=== PATIENT | male | born 1955 | race African-American/Black ===

== ENCOUNTER 2016-07-22 13:21 | Emergency (ER) | payer MEDICARE, OTHER ==
--- NOTE | ~2016-07-22 | EKG ---
PATIENT: BI ZIMMERMAN UNIT #: [id number] Ventricular Rate: 101 BPM Atrial Rate: 101 BPM P-R Interval: 120 ms QRS Duration: 76 ms Q-T Interval: 346 ms QTC Calculation(Bezet): 448 ms P [place]: 78 degrees Calculated R [place]: 74 degrees Calculated T [place]: 81 degrees Diagnosis Line: Sinus tachycardia Diagnosis Line: Otherwise normal ECG Diagnosis Line: When compared with ECG of 14-FEB-2016 10:12, Diagnosis Line: Nonspecific T wave abnormality no longer evident Diagnosis Line: in Anterior leads Diagnosis Line: Confirmed by JAHAIRA HORTON MD ([id number]) on 07/22/2016 Diagnosis Line: 4:17:14 PM INTERPRETING MD: SOL SWENSON
--- NOTE | ~2016-07-22 | CR72 ---
[facility] A Service of [facility] RADIOLOGY TEXT RESULTS PATIENT: BI ZIMMERMAN LOCATION: [facility] : 57 UNIT #: [id number] AGE: [address]: Javed Chambers MD SEX: M ORDER DR: [id number] [facility]. [place], [place] [address] [id number] MR#: [id number] Acc #: [id number] NAME: BI ZIMMERMAN : 1955 SEX: M STUDY DATE/TIME: 07/22/2016 UNIT: [facility] ROOM: STUDY DESCRIPTION: CR Chest Single View Portable Attending Physician: Javed Chambers M.D. Ordering Physician: Ed Ben Monique M.D. Primary Care Physician: No Primary Care Physician MEDICAL IMAGING REPORT This report is preliminary unless electronic signature is present EXAM Portable chest, 07/22/2016, 1324 hours. HISTORY 61-year-old man with history of emphysema complaining of cough, shortness of air, and chest pain for 3-4 days. COMPARISON STUDIES 02/17/2016 FINDINGS 2 upright views demonstrate normal cardiac, mediastinal, and hilar contours. The lungs are hyperinflated with underlying calcified granulomatous changes. There are no acute pulmonary densities or pleural effusions. IMPRESSION Stable hyperinflation with benign calcified granulomatous changes. No acute pulmonary or pleural findings. No appreciable change from 02/17/2016. Dictated by... Libby Mancini M.D. THIS IS AN ELECTRONICALLY VERIFIED REPORT Libby Mancini M.D. at 07/22/2016 6:59 PM Cassie TD: 07/22/2016 17:28 JOB #: [id number] MEDICAL IMAGING REPORT [facility] A Service of [facility] RADIOLOGY TEXT RESULTS PATIENT: BI ZIMMERMAN LOCATION: [place] : 57 UNIT #: [id number] AGE: [address]: Javed Chambers MD SEX: M ORDER DR: COPY
[~2016-07-22 13:21] MED LIST: ACETAMINOPHEN PO; ALBUTEROL MININEB NEB; ALBUTEROL17 GM INH; ALBUTEROL20 ml INH; ASPIRIN ENTERI325 M1 PO; ATORVASTATIN CA10 MG PO; AZITHROMYCIN250 MG PO; B COMPLEX1 CA1 PO; COMBIVENT MININEB INH; COZAAR PO; COZAAR25 MG PO; DOCUSATE SODIUM1 TAB PO; FLOMAX0.4 M1 PO; FLUTICASONE PROP1 GM; HAIR, SKIN & N1 EAC1 PO; HYDROCHLOROTHIA25 MG PO; HYDROCODON-ACE1 EAC7 PO; KOMBIGLYZE XR1 EAC2 PO; LEVAQUIN PO; LIPITOR40 MG PO; LOSARTAN-HCTZ1 EAC1 PO; MEGA MULTIVITA1 EACH PO; MUCINEX D ER T1 EAC1 PO; NASONEB NASAL1 EACH MC; POTASSIUM99 M1 PO; POTASSIUM99 M3 PO; PREDNISONE PO; PREDNISONE10 MG PO; PROAIR HFA8.5 GM INH; PULMICORT0.25 MG/2 INH; SENNA S TABLET1 TAB PO; STOOL SOFTENER50 MG PO; SYMBICORT INH; SYMBICORT80 INH; TYLENOL325 M1 PO; ZITHROMAX PO
[2016-07-22] MEDS ORDERED: HYDROCHLOROTHIA25 MG PO (13:25)
[2016-07-22] MEDS ORDERED: SYMBICORT INH (13:25)
[2016-07-22] MEDS ORDERED: NOVOLIN N100 UNIT/1 SUBQ (13:27)
[2016-07-22] MEDS ORDERED: MEGA MULTIVITA1 EACH PO (13:27)
[2016-07-22] MEDS ORDERED: NAPROXEN PO (13:28)
[2016-07-22] MEDS ORDERED: PROTONIX PO (13:29)
[2016-07-22 13:31] LABS: POC - TROPONIN <0.05 ng/mL (<=0.05)
[2016-07-22] MEDS ORDERED: SAXAGLIPTIN HCL PO (13:31)
[2016-07-22] MEDS ORDERED: ASPIRIN EC81 M1 PO (13:32)
[2016-07-22 13:45] LABS: BASOPHIL# 0.1 X10e3 (0-0.3); BASOPHIL% 0.9 % (0-2.5); EOSINOPHIL% 0.2 % (0.0-7.0); HEMATOCRIT 49.8 % (38.0-50.0); HEMOGLOBIN 16.8 gm/dL (13.0-16.0); LYMPHOCYTE# 1.2 X10e3 (1.0-3.5); LYMPHOCYTE% 10.2 % (17.0-45.0); MEAN CELL VOLUME 94.5 FL (83-96); MEAN CORPUSCULAR HEMOGLOBIN 31.9 PG (28-34); MEAN CORPUSCULAR HGB CONC 33.8 g/dL (30-36); MEAN PLATELET VOLUME 8.9 FL (6.5-11.5); MONOCYTE# 1.7 X10e3 (0-1.0); MONOCYTE% 14.1 % (3.0-12.0); NEUTROPHIL# 9.1 X10e3 (1.5-7.1); NEUTROPHIL% 74.6 % (40-75); PLATELET COUNT 221 X10e3 (140-420); RED BLOOD COUNT 5.27 X10e (3.90-5.60); RED CELL DISTRIBUTION WIDTH 13.7 % (11.0-15.5); WHITE BLOOD COUNT 12.2 X10e3 (4.0-10.5)
[2016-07-22 13:52] LABS: DIFF IND NO
[2016-07-22 14:40] LABS: ALBUMIN SERUM 3.8 g/dL (3.5-5.0); ALKALINE PHOSPHATASE 62 U/L (32-92); ALT (SGPT) 29 U/L (10-40); AST (SGOT) 32 U/L (10-42); BILIRUBIN, DIRECT 0.3 mg/dL (0.0-0.2); BILIRUBIN,TOTAL 2.3 mg/dL (0.2-2.0); BLOOD UREA NITROGEN 10 mg/dL (9-23); CALCIUM SERUM 9.1 mg/dL (8.4-10.2); CARBON DIOXIDE 28 mmol/L (22-31); CHLORIDE 97 mmol/L (100-111); GLOM FILT RATE Estimated ABOVE60 mL/min (>60); GLUCOSE FASTING 157 mg/dL (70-110); POTASSIUM 3.4 mmol/L (3.5-5.1); PROTEIN TOTAL SERUM 6.7 g/dL (6.0-8.3); SODIUM 137 mmol/L (135-145)
[2016-07-22 15:53] LABS: POC - CKMB 2.7 ng/mL (0.0-7.9); POC - TROPONIN <0.05 ng/mL (<=0.05)
== END 2016-07-22 16:40 | disposition home or self-care (01) ==
LOC: CED 13:21
PROVIDERS: Emergency Medicine
DX: J44.1 Chronic obstructive pulmonary disease with (acute) exacerbation (principal); E78.5 Hyperlipidemia, unspecified; I25.10 Atherosclerotic heart disease of native coronary artery without angina pectoris; I10 Essential (primary) hypertension; F41.9 Anxiety disorder, unspecified; F17.210 Nicotine dependence, cigarettes, uncomplicated; Z79.82 Long term (current) use of aspirin; Z79.899 Other long term (current) drug therapy
CPT/HCPCS: 71010; 80048; 80076; 82553; 83880; 84484; 85025; 93005; 99284

== ENCOUNTER 2016-11-07 22:17 | Emergency (ER) | payer MEDICARE, OTHER ==
--- NOTE | ~2016-11-07 | CR72 ---
[facility] A Service of [facility] RADIOLOGY TEXT RESULTS PATIENT: BI ZIMMERMAN LOCATION: [facility] : 57 UNIT #: [id number] AGE: [address]: Juan Quezada MD SEX: M ORDER DR: [id number] [facility] [address] [facility]. [place], [place] [address] [id number] MR#: [id number] Acc #: [id number] NAME: BI ZIMMERMAN : 1955 SEX: M STUDY DATE/TIME: 11/07/2016 23:09 UNIT: [facility] ROOM: STUDY DESCRIPTION: CR Chest Single View Portable Attending Physician: Jaun Quezada M.D. Ordering Physician: Juan Quezada M.D. Primary Care Physician: No Primary Care Physician MEDICAL IMAGING REPORT This report is preliminary unless electronic signature is present EXAM Single view chest INDICATIONS Shortness of air for 1 day. Cough and congestion. COMPARISON AP radiograph of the abdomen compared to 07/22/2016. FINDINGS Heart and mediastinal contours are normal. Lungs are hyperinflated. There are some chronic interstitial opacities that are similar to the prior study. No pleural effusion. IMPRESSION 1. No acute findings or significant interval change. 2. Hyperinflated lungs suggesting COPD with some chronic interstitial opacities. Dictated by... Mata Lopez M.D. THIS IS AN ELECTRONICALLY VERIFIED REPORT Mata Lopez M.D. at 11/08/2016 10:29 PM KHLOE/[place] TD: 11/08/2016 09:37 JOB #: [id number] MEDICAL IMAGING REPORT Page 1 of 1 COPY
[~2016-11-07 22:17] MED LIST changes: +ASPIRIN EC81 M1 PO; +NAPROXEN PO; +NOVOLIN N100 UNIT/1 SUBQ; +PROTONIX PO; +SAXAGLIPTIN HCL PO
== END 2016-11-08 00:23 | disposition home or self-care (01) ==
LOC: CED 22:17
DX: J44.1 Chronic obstructive pulmonary disease with (acute) exacerbation (principal); I25.10 Atherosclerotic heart disease of native coronary artery without angina pectoris; E11.9 Type 2 diabetes mellitus without complications; I10 Essential (primary) hypertension; J44.9 Chronic obstructive pulmonary disease, unspecified; Z79.82 Long term (current) use of aspirin; Z79.899 Other long term (current) drug therapy
CPT/HCPCS: 71010; 99285; C9113; J0696; J3370